=== PATIENT | female | born 1985 | race Two or more races ===

== ENCOUNTER 2021-04-12 11:45 | Observation (INO) | payer BC ==
[2021-04-12] MEDS ORDERED: PREN-96 PO (13:41)
== END 2021-04-12 13:52 | disposition home or self-care (01) ==
LOC: LDRP 11:45
PROVIDERS: ADMIT Obstetrics & Gynecology; ATTEND Obstetrics & Gynecology
DX: O62.9 Abnormality of forces of labor, unspecified (principal); Z3A.36 36 weeks gestation of pregnancy
CPT/HCPCS: 59025; 81002; G0378

== ENCOUNTER 2021-04-13 03:54 | Observation (INO) | payer BC ==
[~2021-04-13] VITALS: Ht 157.5 cm; Wt 74.4 kg
[~2021-04-13 03:54] MED LIST: PREN-96 PO
[2021-04-13 05:51] LABS: Basophils # (auto) 0 10 ^3/uL (0-0.2); Basophils % (auto) 0.3 % (0.0-2.0); Eosinophils # (auto) 0 10 ^3/uL (0-0.8); Eosinophils % (auto) 0.5 % (0.0-7.0); Hematocrit 30.4 % (36.0-46.0); Hemoglobin 10.7 g/dL (12.2-16.2); Lymphocytes # (auto) 1.6 10 ^3/uL (0.4-5.4); Lymphocytes % (auto) 21.2 % (10.0-50.0); Mean Corpuscular Hemoglobin 29.6 pg (28.0-32.0); Mean Corpuscular Hgb Conc. 35.2 g/dL (32.0-36.0); Mean Corpuscular Volume 84.2 fL (80.0-100.0); Monocytes # (auto) 0.5 10 ^3/uL (0-1.3); Monocytes % (auto) 6.9 % (0.0-12.0); Neutrophils # (auto) 5.2 10 ^3/uL (1.6-8.6); Neutrophils % (auto) 71.1 % (37.0-80.0); Red Blood Cells 3.61 10^6/uL (4.0-5.20); Red Cell Distribution Width 13.9 % (11.8-14.3); White Blood Cell 7.3 10^3/uL (4.4-10.8)
[2021-04-13 06:00] LABS: INR 0.96 (0.9-1.15); Partial Thromboplastin Time 22.7 sec (23.6-33.0)
[2021-04-13 06:08] LABS: Albumin 2.5 g/dL (3.4-5.0); Calcium 9.4 mg/dL (8.5-10.1)
[2021-04-13 06:12] LABS: Urine Bacteria FEW /hpf (None Seen); Urine Blood TRACE /uL (Negative); Urine Hyaline Cast FEW /lpf (0 - 2); Urine Specific Gravity 1.014 (1.001-1.035); Urine WBC 9 /hpf (0 - 5)
[2021-04-13 06:12] LABS: BUN/Creatinine Ratio 18.8; Bilirubin, Total 0.2 mg/dL (0.2-1.0); Uric Acid 3.1 mg/dL (2.6-6.0)
[2021-04-13 06:43] LABS: Protein, Urine 28.4 mg/dL (0.0-11.9)
== END 2021-04-13 07:23 | disposition home or self-care (01) ==
LOC: LDRP 03:54
PROVIDERS: ADMIT Obstetrics & Gynecology; ATTEND Obstetrics & Gynecology
DX: O26.893 Other specified pregnancy related conditions, third trimester (principal); K80.20 Calculus of gallbladder without cholecystitis without obstruction; O62.9 Abnormality of forces of labor, unspecified; Z3A.36 36 weeks gestation of pregnancy; Z79.899 Other long term (current) drug therapy
CPT/HCPCS: 36415; 59025; 76705; 80053; 81001; 81002; 82570; 84156; 84550; 85025; 85379; 85384; 85610; 85730; 94760; G0378